=== PATIENT | male | born 1945 | race Caucasian/White ===

== ENCOUNTER 2016-11-27 11:08 | Emergency (ER) | payer OTHER ==
[~2016-11-27 11:08] MED LIST: ADALATCC PO; AMIODIPINE PO; ASPIRIN PO; ATENOLOL PO; BENZ PO; CO Q-10 PO; COQ 10 PO; FOLIC ACID PO; HYDROCODON-ACE1 EAC7 PO; HYDROCODONE-APA1 T30 PO; L-LYSINE PO; LIPITOR PO; LOTREL 5/20 MG1 CAP PO; MAGNALIFE PO; METAMUCIL0.52 G PO; MULTI-VITAMIN1 TAB PO; NEXIUM PO; PROCARDIA10 MG PO; PROTONIX PO; SAW PALMETTO PO; TURMERIC500 MG PO; VIT E PO; ZINC SULFATE PO; ZOCOR PO
[2017-01-17] MEDS ORDERED: TENORMIN25 M1 PO (14:44)
[2017-01-17] MEDS ORDERED: ATORVASTATIN CA80 MG PO (14:44)
[2017-01-17] MEDS ORDERED: LEXAPRO20 MG PO (14:45)
[2017-01-17] MEDS ORDERED: DESYREL50 MG PO (14:45)
[2017-01-17] MEDS ORDERED: AMLODIPINE-BEN1 EACH PO (14:45)
[2017-01-17] MEDS ORDERED: FLOMAX0.4 M1 PO (14:46)
[2017-01-22] MEDS ORDERED: MULTIPLE VITAM1 EAC1 (10:43)
[2017-01-22] MEDS ORDERED: ST. JOSEPH ASP325 MG PO (10:43)
[2017-01-22] MEDS ORDERED: OSTEO BI-FLEX1 EAC3 PO (10:44)
== END 2016-11-27 12:37 | disposition home or self-care (01) ==
LOC: SED 11:08
DX: S61.211A Laceration without foreign body of left index finger without damage to nail, initial encounter (principal); Z23 Encounter for immunization; I11.9 Hypertensive heart disease without heart failure; Z79.899 Other long term (current) drug therapy; Z79.82 Long term (current) use of aspirin; Z88.8 Allergy status to other drugs, medicaments and biological substances; W45.8XXA Other foreign body or object entering through skin, initial encounter; Y92.9 Unspecified place or not applicable
CPT/HCPCS: 12001; 90471; 90715; 99283

== ENCOUNTER 2017-01-04 09:33 | Emergency (ER) | payer OTHER ==
[~2017-01-04] VITALS: Ht 182.9 cm; Wt 104.3 kg
--- NOTE | ~2017-01-04 | CT4 ---
[facility] A Service of [facility] RADIOLOGY TEXT RESULTS PATIENT: PATRICK BHAKTA LOCATION: [facility] : 47 UNIT #: [id number] AGE: [address]: Jhoan Chu DO SEX: M ORDER DR: [id number] [facility] [address] [place], [place] [address] [id number] MR#: [id number] Acc #: [id number] NAME: PATRICK BHAKTA. : 1945 SEX: M STUDY DATE/TIME: 01/04/2017 10:48 UNIT: [facility] ROOM: STUDY DESCRIPTION: CT Abd and Pelv Wo Cont Attending Physician: Jhoan Chu D.O. Ordering Physician: Jhoan Chu D.O. Primary Care Physician: No Primary Care Physician MEDICAL IMAGING REPORT This report is preliminary unless electronic signature is present EXAM CT abdomen and pelvis. INDICATIONS Right flank pain. Hematuria for [address] of the abdomen and pelvis without contrast. Coronal and sagittal reconstructions were obtained. This CT exam was performed with one or more of the following radiation dose reduction techniques: automatic exposure control, adjustment of mA and/or kV according to patient size, and iterative reconstruction. COMPARISON CT abdomen and pelvis, 09/15/2015. FINDINGS ABDOMEN: There are bilateral nonobstructing renal calculi. The calculi measure less than to 2-3 mm in diameter. There is no hydronephrosis or ureteral calculi. Noncontrast evaluation of the remaining solid abdominal organs are within normal limits. The gallbladder is not distended. The bowel is not dilated. The appendix is normal. There are some left-sided colonic diverticula, however, no diverticulitis. The abdominal aorta is of normal caliber. PELVIS: The bladder is unremarkable. There is some dystrophic calcifications in the prostate. Small bilateral inguinal hernias have no complicating features. No enlarged pelvic or inguinal lymph nodes. There is a subacute to acute right-sided rib fractures of the right [facility] A Service of [facility] RADIOLOGY TEXT RESULTS PATIENT: PAT[facility]ICK BHAK[id number] : 47 UNIT #: [id number] AGE: [address]: Jhoan Chu DO SEX: M ORDER DR: lateral 8th and 9th ribs. IMPRESSION 1. Acute to subacute nondisplaced fractures of the right lateral eighth and ninth ribs. 2. Bilateral nephrolithiasis. No hydronephrosis or ureteral calculi. 3. Diverticulosis without diverticulitis. Dictated by... Boy Fish M.D. THIS IS AN ELECTRONICALLY VERIFIED REPORT Boy Fish M.D. at 01/05/2017 1:24 PM YENI/rocky TD: 01/05/2017 04:40 JOB #: [id number] MEDICAL IMAGING REPORT Page 1 of 1 COPY
[2017-01-04 10:42] LABS: BASOPHIL# 0.1 X10e3 (0-0.3); BASOPHIL% 0.9 % (0-2.5); EOSINOPHIL# 0.2 X10e3 (0-0.7); EOSINOPHIL% 2.1 % (0.0-7.0); HEMATOCRIT 45.7 % (38.0-50.0); HEMOGLOBIN 15.4 gm/dL (13.0-16.0); LYMPHOCYTE# 1.5 X10e3 (1.0-3.5); LYMPHOCYTE% 18.7 % (17.0-45.0); MEAN CELL VOLUME 94.7 FL (83-96); MEAN CORPUSCULAR HGB CONC 33.8 g/dL (30-36); MEAN PLATELET VOLUME 7.9 FL (6.5-11.5); MONOCYTE# 0.8 X10e3 (0-1.0); MONOCYTE% 10.1 % (3.0-12.0); NEUTROPHIL# 5.7 X10e3 (1.5-7.1); NEUTROPHIL% 68.2 % (40-75); PLATELET COUNT 205 X10e3 (140-420); RED BLOOD COUNT 4.83 X10e (3.90-5.60); RED CELL DISTRIBUTION WIDTH 13.1 % (11.0-15.5); WHITE BLOOD COUNT 8.3 X10e3 (4.0-10.5)
[2017-01-04 10:47] LABS: DIFF IND NO
[2017-01-04 10:56] LABS: PARTIAL THROMBOPLASTIN TIME 22.2 SECONDS (23.5-31.3); PROTHROMBIN TIME (PATIENT) 10.8 SECONDS (10.0-11.7)
[2017-01-04 11:23] LABS: ALBUMIN SERUM 4.2 g/dL (3.5-5.0); BILIRUBIN, DIRECT 0.2 mg/dL (0.0-0.2); BILIRUBIN,INDIRECT 0.7 mg/dL (0.0-0.9); BILIRUBIN,TOTAL 0.9 mg/dL (0.2-2.0); BUN/CREATININE RATIO 31.11; CALCIUM SERUM 9.3 mg/dL (8.4-10.2); CREATININE SERUM 0.9 mg/dL (0.6-1.4); GLOM FILT RATE Estimated 86.2 mL/min (>60); POTASSIUM 4.2 mmol/L (3.5-5.1); PROTEIN TOTAL SERUM 7.1 g/dL (6.0-8.3)
[2017-01-04 12:31] LABS: URINE SOURCE CLEAN CATCH
[2017-01-04 12:41] LABS: URINE APPEARANCE CLEAR; URINE BILIRUBIN NEG (NEG); URINE BLOOD 2+ (NEG); URINE COLOR YELLOW; URINE GLUCOSE NEG (NEG); URINE KETONE TRACE (NEG); URINE LEUKOCYTE ESTERASE 1+ (NEG); URINE NITRATE NEG (NEG); URINE PH 6.5 (5-8); URINE PROTEIN NEG (NEG); URINE SPECIFIC GRAVITY 1.024 (1.003-1.035)
[2017-01-04 12:43] LABS: URBCS1 AUWI 25-50 /[HPF] (0-2); URINE BACTERIA AUWI NEG (NEGATIVE); URINE SQUAMOUS EPITHELIAL CELL NONE SEEN /[HPF]
[2017-01-04 13:13] LABS: CULTURE INDICATED? NO
[2017-01-04 13:14] LABS: URINE CRYSTALS CALCIUM OXALATE /[HPF]; URINE MUCUS PRESENT
[2017-01-17] MEDS ORDERED: TENORMIN25 M1 PO (14:44)
[2017-01-17] MEDS ORDERED: ATORVASTATIN CA80 MG PO (14:44)
[2017-01-17] MEDS ORDERED: AMLODIPINE-BEN1 EACH PO (14:45)
[2017-01-17] MEDS ORDERED: DESYREL50 MG PO (14:45)
[2017-01-17] MEDS ORDERED: LEXAPRO20 MG PO (14:45)
[2017-01-17] MEDS ORDERED: FLOMAX0.4 M1 PO (14:46)
[2017-01-22] MEDS ORDERED: MULTIPLE VITAM1 EAC1 (10:43)
[2017-01-22] MEDS ORDERED: ST. JOSEPH ASP325 MG PO (10:43)
[2017-01-22] MEDS ORDERED: OSTEO BI-FLEX1 EAC3 PO (10:44)
== END 2017-01-04 14:28 | disposition home or self-care (01) ==
LOC: CED 09:33
PROVIDERS: Emergency Medicine
DX: R31.9 Hematuria, unspecified (principal); I10 Essential (primary) hypertension; E78.5 Hyperlipidemia, unspecified; F32.9 Major depressive disorder, single episode, unspecified; Z88.8 Allergy status to other drugs, medicaments and biological substances; Z79.82 Long term (current) use of aspirin; Z79.899 Other long term (current) drug therapy
CPT/HCPCS: 36415; 74176; 80048; 80076; 81003; 85025; 85610; 85730; 99284